=== PATIENT | male | born 1960 | race Caucasian/White ===

== ENCOUNTER 2025-02-14 11:04 | Outpatient (CLI) | payer SELFPAY ==
--- NOTE | 2025-02-14 11:12 | XR_ITS ---
WS: [id number] XR shoulder LT min 2V* [id number] REASON FOR EXAM: M25.512 - Pain in left shoulder FINDINGS: No fracture or focal bone lesion. Mild narrowing of the acromioclavicular joint with mild subchondral sclerosis and osteophytosis. Mild downward lateral slant of the acromial process. Moderate narrowing of the glenohumeral joint with moderate subchondral sclerosis of the glenoid and minimal osteophytosis of the humeral head. Moderate sclerosis and cystic change in the greater tuberosity. 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 Moderate osteoarthritis in the glenohumeral joint. Moderate rotator cuff tendon arthropathy.
== END 2025-02-14 11:05 | disposition home or self-care (01) ==
LOC: RAD 11:09
PROVIDERS: PCP Nurse Practitioner Family; Visit Provider Nurse Practitioner Family
DX: M25.512 Pain in left shoulder (principal)
CPT/HCPCS: 73030

== ENCOUNTER 2025-03-07 10:50 | Outpatient (CLI) | payer MEDICARE, SELFPAY ==
--- NOTE | 2025-03-07 11:00 | MR_ITS ---
WS: [id number] MRI LEFT SHOULDER HISTORY: M25.512 - Pain in left shoulder COMPARISON: Radiograph 02/14/2025 TECHNIQUE: Multiplanar sequences of the shoulder joint are submitted. Moderate to severe AC joint arthritis. Hypertrophic bone formation with osteophytes distal clavicle and the acromion. Erosions in the distal clavicle and acromion. Large osteophyte encroaches upon the distal supraspinatus tendon with deformity. Moderate subacromial impingement. Small amount of fluid in the subdeltoid and subacromial bursa. No os acromion. Normal position of the biceps tendon in the bicipital groove. Humeral head normally positioned in the glenoid. Small subchondral cyst along the posterolateral humeral head. Mild supraspinatus muscle atrophy. There is fraying along the both this articular and bursal surfaces of the tendon. There is no rotator cuff tendon tear identified. Supraspinatus tendon is being deformed both by the subacromial impingement and the clavicular osteophytes. Subscapularis and infraspinatus tendons are intact. Negative teres minor. No labral tear. Mild thickening of the coracohumeral ligament. MR/MR shoulder LT wo con* [id number] IMPRESSION: 1. Moderate to severe AC joint arthropathy with encroachment and deformity of the supraspinatus tendon. 2. Moderate subacromial impingement upon the supraspinatus tendon. 3. No rotator cuff tear identified. 4. No labral tear.
== END 2025-03-07 10:51 | disposition home or self-care (01) ==
LOC: RAD 10:52
PROVIDERS: PCP Nurse Practitioner Family; Visit Provider Nurse Practitioner Family
DX: M25.512 Pain in left shoulder (principal); M19.012 Primary osteoarthritis, left shoulder; M75.42 Impingement syndrome of left shoulder; M25.712 Osteophyte, left shoulder; M89.412 Other hypertrophic osteoarthropathy, left shoulder; M89.511 Osteolysis, right shoulder; M85.422 Solitary bone cyst, left humerus; M62.512 Muscle wasting and atrophy, not elsewhere classified, left shoulder; M24.29 Disorder of ligament, other specified site; M24.212 Disorder of ligament, left shoulder
CPT/HCPCS: 73221

== ENCOUNTER → 2025-03-31 09:54 | Outpatient (BNVA) | payer MEDICARE, SELFPAY | PROVIDERS: PCP Nurse Practitioner Family; Visit Provider Specialist | DX: M25.812 Other specified joint disorders, left shoulder (principal); G56.92 Unspecified mononeuropathy of left upper limb; M25.512 Pain in left shoulder | CPT/HCPCS: 99204 ==

== ENCOUNTER 2025-04-16 09:35 | Outpatient (RCR) | payer MEDICARE, SELFPAY | END 2025-05-14 23:59 | disposition home or self-care (01) | LOC: SPT 09:35 | PROVIDERS: Visit Provider Specialist | DX: M25.812 Other specified joint disorders, left shoulder (principal) | CPT/HCPCS: 97110; 97161 ==

== ENCOUNTER → 2025-04-28 09:49 | Outpatient (BNVA) | payer MEDICARE, SELFPAY | PROVIDERS: Visit Provider Specialist | DX: M25.812 Other specified joint disorders, left shoulder (principal); G56.92 Unspecified mononeuropathy of left upper limb; M25.512 Pain in left shoulder | CPT/HCPCS: 99213 ==